=== PATIENT | male | born 2000 | race Caucasian/White ===

== ENCOUNTER 2020-06-03 04:06 | Emergency (ER) | payer BC, OTHER ==
[~2020-06-03] VITALS: Ht 185.4 cm; Wt 78.0 kg
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
[2020-06-03] MEDS ORDERED: HYDROCODONE/APAP 10/325MG TABLET ONE (04:23)
[2020-06-03] MEDS ORDERED: HYDROCODONE/APAP 10/325MG TABLET PO ONE (04:30)
--- NOTE | 2020-06-03 05:32 | NUR ---
CALLED [facility] TO FOLLOW UP REGARDING READ FOR IMAGING.
[2020-06-03] MEDS ORDERED: MORPHINE SULFATE INJ 4 MG/ML DISP.SYRIN ONE (05:51)
[2020-06-03] MEDS ORDERED: MORPHINE SULFATE INJ 4 MG/ML DISP.SYRIN IM ONE (06:00)
--- NOTE | 2020-06-03 06:15 | NUR ---
Emt at bedside for rewrapping of wound and sugar tong splint application.
--- NOTE | 2020-06-03 06:20 | NUR ---
Patient discharged to home in stable condition. Written and verbal after care instructions given. Patient verbalizes understanding of instruction. Pt ambulatory with a steady gait
[2020-06-03 06:31] VITALS: BP 112/78
== END 2020-06-03 06:20 | disposition home or self-care (01) ==
LOC: ER 04:11
DX: G89.18 Other acute postprocedural pain (principal); M79.602 Pain in left arm; M79.601 Pain in right arm
CPT/HCPCS: 73080; 73090; 73110; 96372; 99284; J2270